=== PATIENT | male | born 2000 | race Hispanic/Latino ===

== ENCOUNTER 2021-07-22 16:12 | Emergency (ER) | payer OTHER ==
[~2021-07-22] VITALS: Ht 182.9 cm; Wt 79.4 kg
[2021-07-22 18:12] VITALS: BP 121/76
== END 2021-07-22 18:20 | disposition home or self-care (01) ==
LOC: ER 17:44
DX: U07.1 COVID-19 (principal)
CPT/HCPCS: 71045; 93005; 99283